=== PATIENT | female | born 1990 | race Hispanic/Latino ===

== ENCOUNTER 2022-07-21 22:18 | Emergency (ER) | payer BC ==
[~2022-07-21] VITALS: Ht 170.2 cm; Wt 113.4 kg
[2022-07-21] MEDS ORDERED: IBUPROFEN 600 MG TAB PO STA (22:25)
[2022-07-21] MEDS ORDERED: IBUPROFEN 200 MG TAB PO STA (22:25)
[2022-07-21 23:38] LABS: CLARITY,URINE SL CLOUDY (CLEAR); COLOR,URINE YELLOW (YELLOW); KETONES,URINE NEGATIVE (NEGATIVE); LEUKOCYTE ESTERASE ,URINE SMALL (NEGATIVE); NITRITE,URINE NEGATIVE (NEGATIVE); PROTEIN,URINE DIPSTICK 2+ (NEGATIVE); URINE UROBILINOGEN 0.2 mg/dL (0.2 - 1)
[2022-07-21 23:43] LABS: AMORPHOUS SEDIMENT,URINE MANY (FEW); BACTERIA,URINE MODERATE /HPF; EPITHELIAL CELLS,URINE MANY /LPF; WBC,URINE (MAN) 21-50 /HPF (0-5)
[2022-07-22] MEDS ORDERED: CEFTRIAXONE 1 GM VIAL IM ONE
[2022-07-22] MEDS ORDERED: ACETAMINOPHEN 325 MG TAB PO ONE (00:15)
[2022-07-22] MEDS ORDERED: ACETAMINOPHEN 325 MG TAB ONE (00:21)
[2022-07-22] MEDS ORDERED: CEFDINIR300 MG PO (00:54)
[2022-07-22 01:32] VITALS: BP 120/99
== END 2022-07-22 01:37 | disposition home or self-care (01) ==
LOC: ER 22:25
DX: R50.9 Fever, unspecified (principal); N39.0 Urinary tract infection, site not specified; R11.0 Nausea; Z20.822 Contact with and (suspected) exposure to COVID-19
CPT/HCPCS: 81001; 83518; 87070; 99283; J0696; U0002